=== PATIENT | female | born 1995 | race Caucasian/White ===

== ENCOUNTER 2022-03-26 18:41 | Emergency (ER) | payer MEDICAID ==
[~2022-03-26] VITALS: Ht 172.7 cm; Wt 77.1 kg
[2022-03-26] MEDS ORDERED: CEFTRIAXONE 1GM BAG (ER ONLY) 50 ML IV ONE (19:48)
[2022-03-26] MEDS ORDERED: KETOROLAC TROMETHAMINE INJ 30 MG/ML VIAL ONE (19:49)
[2022-03-26] MEDS ORDERED: ONDANSETRON HCL/PF 4 MG/2 ML VIAL ONE (19:49)
--- NOTE | 2022-03-26 19:54 | NUR ---
BIBS C/O R SIDE FLANK PAIN. STATES SHE HAD A RECENT UTI AND WAS PRESCRIBED ABX AND IS ON THE LAST DAY OF HER COURSE WITH MINIMAL IMPROVEMENT. ALSO REPORT SUBJECTIVE FEVERS SHE HAS BEEN TREATING WITH TYLENOL. PAIN IS 8/10 CONSTANT NONRADIATING. -N/V/D. REPORTS CONTINUED PAIN WITH URINATION AND INCREASED FREQUENCY. CHANGED INTO GOWN AND PLACED ON M,ONITOR AND V/S WNL.
--- NOTE | 2022-03-26 19:57 | NUR ---
20g iv established at [facility]. blood drawn and sent to lab
[2022-03-26] MEDS ORDERED: KETOROLAC TROMETHAMINE INJ 30 MG/ML VIAL IV ONE (20:00)
[2022-03-26] MEDS ORDERED: IV NS 0.9% 1,000 ML BAG IV ONE (20:00)
[2022-03-26] MEDS ORDERED: ONDANSETRON HCL/PF 4 MG/2 ML VIAL IVP ONE (20:00)
[2022-03-26] MEDS ORDERED: CEFTRIAXONE 1GM BAG (ER ONLY) 1 GM/50 ML PIGGYBACK IV ONE (20:00)
--- NOTE | 2022-03-26 20:02 | NUR ---
waiver signed and placed in pt chart
[2022-03-26 20:06] LABS: BASOPHILS % (AUTO) 0.4 % (0.0-2.0); EOSINOPHILS % (AUTO) 0.2 % (0.0-6.0); HEMATOCRIT 41 % (33-45); HEMOGLOBIN 14.1 g/dL (11.5-14.8); LYMPHOCYTES # (AUTO) 0.4 K/uL (0.8-4.8); LYMPHOCYTES % (AUTO) 4.7 % (20.0-44.0); MEAN CORPUSCULAR HGB CONC 35 g/dl (31.0-36.0); MEAN CORPUSCULAR VOLUME 95 fL (82-100); MONOCYTES # (AUTO) 0.6 K/uL (0.1-1.30); MONOCYTES % (AUTO) 6.7 % (2.0-12.0); NEUTROPHILS # (AUTO) 7.8 K/uL (1.8-8.9); PLATELET COUNT (AUTO) 207 K/uL (150-450); RED BLOOD CELL COUNT(AUTO) 4.32 MIL/uL (4.0-5.2); WHITE BLOOD COUNT (AUTO) 8.9 K/uL (4.3-11.0)
[2022-03-26 20:06] LABS: BILIRUBIN,URINE NEGATIVE (NEGATIVE); COLOR,URINE YELLOW (YELLOW); LEUKOCYTE ESTERASE ,URINE NEGATIVE (NEGATIVE); NITRITE, URINE NEGATIVE (NEGATIVE); PROTEIN,URINE NEGATIVE (NEGATIVE); UGLUCOSE NEGATIVE (NEGATIVE); UROBILINOGEN,URINE 0.2 EU/dL (0.2)
[2022-03-26 20:12] LABS: CALCIUM, SERUM 9.2 mg/dL (8.5-10.1); CREATININE 0.8 mg/dL (0.6-1.3); POTASSIUM 3.7 mmol/L (3.5-5.1)
[2022-03-26 20:15] LABS: RBC,URINE 0-2 /HPF (0-2); WBC,URINE 0-2 /HPF (0-3)
[2022-03-26 20:16] LABS: BACTERIA,URINE Rare /HPF (None Seen); SQUAMOUS EPITHELIAL CELL,UR Few /HPF (None Seen)
[2022-03-26 20:18] LABS: ALBUMIN 4.1 g/dL (3.4-5.0); BILIRUBIN,DIRECT 0.1 mg/dL (0.0-0.2); BILIRUBIN,TOTAL 0.4 mg/dL (0.2-1.0); TOTAL PROTEIN, SERUM 7.3 g/dL (6.4-8.2)
--- NOTE | 2022-03-26 20:33 | NUR ---
PT TRANSPORTED TO [facility]IA [facility]
--- NOTE | 2022-03-26 20:43 | NUR ---
[facility]
[2022-03-26] MEDS ORDERED: IBUP-1955 PO (21:17)
[2022-03-26] MEDS ORDERED: HYDR-4303 PO (21:17)
[2022-03-26] MEDS ORDERED: TAMS-12 PO (21:17)
--- NOTE | 2022-03-26 21:30 | NUR ---
Patient discharged to home in stable condition. Written and verbal after care instructions given. Patient verbalizes understanding of instruction.IV removed. Catheter intact and site benign. Pressure and 4x4 applied to site. No bleeding noted.
[2022-03-26 21:53] VITALS: BP 108/64
== END 2022-03-26 21:33 | disposition home or self-care (01) ==
LOC: ER 18:45
DX: N20.0 Calculus of kidney (principal); Z79.899 Other long term (current) drug therapy
CPT/HCPCS: 99284; 74176; 96365; 96375; 85025; 80048; 83690; 80076; 84703; 81001; 36415; J1885; J2405; J7030; J0696

== ENCOUNTER 2023-09-29 20:16 | Emergency (ER) | payer SELFPAY ==
[~2023-09-29] VITALS: Ht 175.3 cm; Wt 81.2 kg
[~2023-09-29 20:16] MED LIST: HYDR-4303 PO; IBUP-1955 PO; TAMS-12 PO
[2023-09-29 23:13] LABS: BASOPHILS % (AUTO) 0.4 % (0.0-2.0); EOSINOPHILS % (AUTO) 0.6 % (0.0-6.0); HEMATOCRIT 42 % (33-45); HEMOGLOBIN 14.1 g/dL (11.5-14.8); LYMPHOCYTES # (AUTO) 1.3 K/uL (0.8-4.8); LYMPHOCYTES % (AUTO) 16.5 % (20.0-44.0); MEAN CORPUSCULAR HEMOGLOBIN 32 PG (26.0-33.0); MEAN CORPUSCULAR HGB CONC 34 g/dl (31.0-36.0); MEAN CORPUSCULAR VOLUME 94 fL (82-100); MONOCYTES # (AUTO) 0.8 K/uL (0.1-1.30); MONOCYTES % (AUTO) 9.9 % (2.0-12.0); NEUTROPHILS # (AUTO) 5.6 K/uL (1.8-8.9); NEUTROPHILS % (AUTO) 72.6 % (43.0-81.0); PLATELET COUNT (AUTO) 200 K/uL (150-450); RED BLOOD CELL COUNT(AUTO) 4.44 MIL/uL (4.0-5.2); RED CELL DISTRIBUTION WIDTH 12.1 % (11.5-15.0); WHITE BLOOD COUNT (AUTO) 7.8 K/uL (4.3-11.0)
[2023-09-29 23:13] LABS: APPEARANCE,URINE SLIGHTLY CLOUDY (CLEAR); BILIRUBIN,URINE NEGATIVE (NEGATIVE); BLOOD, URINE 2+ Ery/uL (NEGATIVE); COLOR,URINE YELLOW (YELLOW); KETONES,URINE TRACE mg/dL (NEGATIVE); LEUKOCYTE ESTERASE ,URINE 1+ (NEGATIVE); NITRITE, URINE NEGATIVE (NEGATIVE); PROTEIN,URINE NEGATIVE (NEGATIVE); UGLUCOSE NEGATIVE (NEGATIVE)
[2023-09-29 23:14] LABS: PREGNANCY TEST URINE QUAL NEGATIVE (NEGATIVE)
[2023-09-29 23:45] LABS: ALBUMIN 3.3 g/dL (3.4-5.0); BILIRUBIN,TOTAL 0.7 mg/dL (0.2-1.0); CALCIUM, SERUM 8.8 mg/dL (8.5-10.1); CREATININE 0.9 mg/dL (0.6-1.3); POTASSIUM 3.1 mmol/L (3.5-5.1)
[2023-09-29 23:56] LABS: LACTIC ACID 1.2 mmol/L (0.4-2.0)
[2023-09-30] MEDS ORDERED: AZIT250T PO (01:08)
[2023-09-30] MEDS ORDERED: BENZ-13 PO (01:08)
[2023-09-30] MEDS ORDERED: ALBU8.5H8 INH (01:15)
[2023-09-30] MEDS ORDERED: POTASSIUM CHLORIDE 20 MEQ TAB.PRT.SR PO ONE (01:18)
[2023-09-30] MEDS: POTASSIUM CHLORIDE 20 MEQ TAB.PRT.SR PO ONE (01:20)
[2023-09-30] MEDS: ALBUTEROL FS 2.5 MG/3 ML VIAL.NEB NEB ONE (01:30)
[2023-09-30] MEDS ORDERED: ALBUTEROL FS 2.5 MG/3 ML VIAL.NEB ONE (01:32)
[2023-09-30 01:35] VITALS: O2SAT 98
[2023-09-30 01:38] LABS: ADD URINE CULTURE YES; BACTERIA,URINE 3+ /HPF (None Seen); RBC,URINE 21-50 /HPF (0-2); SQUAMOUS EPITHELIAL CELL,UR Many /HPF (None Seen)
[2023-09-30 01:50] VITALS: O2SAT 99
[2023-09-30 02:28] VITALS: BP 111/67; TEMP 98.5; O2SAT 99
== END 2023-09-30 02:29 | disposition home or self-care (01) ==
LOC: ER 20:17
DX: J40 Bronchitis, not specified as acute or chronic (principal); Z79.899 Other long term (current) drug therapy; Z20.822 Contact with and (suspected) exposure to COVID-19
CPT/HCPCS: 36415; 71045-TC; 80053-TC; 81001; 83605-TC; 84703-TC; 85025-TC